=== PATIENT | female | born 1990 | race Caucasian/White ===

== ENCOUNTER 2019-01-14 18:05 | Inpatient (IN) ==
[2019-01-14 18:27] LABS: URINE SOURCE VOIDED
[2019-01-14] MEDS ORDERED: KEFZOL 1 GM/D5W 1 GM/50 ML IVPB IV PRN (18:28)
[2019-01-14] MEDS ORDERED: REGLAN PO ONE (18:28)
[2019-01-14] MEDS ORDERED: PEPCID PO ONE (18:28)
[2019-01-14] MEDS ORDERED: LR 1,000 ML IV SCH ×2 (18:30→22:30)
[2019-01-14] MEDS ORDERED: BICITRA PO ONE (18:31)
[2019-01-14 18:33] LABS: BILIRUBIN URINE NEGATIVE (NEGATIVE); BLOOD URINE TRACE (NEGATIVE); CLARITY CLEAR (CLEAR); COLOR YELLOW; GLUCOSE URINE NEGATIVE (NEGATIVE); KETONE URINE TRACE mg/dL (NEGATIVE); LEUKOCYTES URINE 1+ (NEGATIVE); NITRITE URINE NEGATIVE (NEGATIVE); PROTEIN URINE 1+(30 mg/dL) mg/dL (NEGATIVE); UROBILINOGEN URINE NORMAL
[2019-01-14] MEDS ORDERED: LR 1,000 ML ONE (18:48)
[2019-01-14 18:57] LABS: UR AMPHETAMINES QUAL NONE DETECTED (NONE DETECT); UR BARBITUATES QUAL NONE DETECTED (NONE DETECT); UR BENZODIAZEPIN QUAL NONE DETECTED (NONE DETECT); UR CANNABINOIDS QUAL NONE DETECTED (NONE DETECT); UR COCAINE QUAL NONE DETECTED (NONE DETECT); UR METHADONE QUAL NONE DETECTED (NONE DETECT); UR METHAMPHETAMINE QUAL NONE DETECTED (NONE DETECT); UR OPIATES QUAL NONE DETECTED (NONE DETECT); UR OXYCODONE QUAL NONE DETECTED (NONE DETECT); UR PCP QUAL NONE DETECTED (NONE DETECT); UR PROPOXYPHENE QUAL NONE DETECTED (NONE DETECT); UR TCA QUAL NONE DETECTED (NONE DETECT)
[2019-01-14 18:57] LABS: BASO# 0.02 X1000 (0.0-0.2); BASO% 0.2 % (0.0-0.8); EOS# 0.06 X1000 (0.0-0.7); EOS% 0.6 % (0.0-10.0); HEMATOCRIT 38.4 % (37.0-47.0); IMM GRAN# 0.06 X1000 (0.0-0.04); IMM GRAN% 0.6 % (0.0-0.5); LYMPH# 1.81 X1000 (1.2-3.4); LYMPH% 17.6 % (20.5-51.1); MCH 29.6 PG (27-31); MCHC 33.9 g/dL (33-37); MCV 87.5 FL (81-99); MONO# 0.93 X1000 (0.11-0.59); MPV 10.4 FL (7.4-10.4); NEUT# 7.43 X1000 (1.4-6.5); PLT 230 X1000 (130-400); RBC 4.39 XMIL (4.2-5.4); RDW 14.5 % (11.5-14.5); WBC 10.31 X1000 (4.8-10.8)
[2019-01-14] MEDS ORDERED: DIPRIVAN 1% ONE (19:11)
[2019-01-14] MEDS ORDERED: EPHEDRINE ONE ×2 (19:12→20:23)
[2019-01-14] MEDS ORDERED: FENTANYL ONE (19:13)
[2019-01-14] MEDS ORDERED: PITOCIN ONE (19:26)
[2019-01-14] MEDS ORDERED: SODIUM CHLORIDE 0.9% 10 ML ONE ×2 (19:28→20:24)
--- NOTE | 2019-01-14 19:40 | HISTORY AND PHYSICAL ---
HISTORY OF PRESENT ILLNESS: The patient is 28-year-old female, G2, P1, at 39 and 1/7 weeks. Presents with complaints of uterine contractions. Patient has a history of prior . She reports this course has been unremarkable. She is under care of a physician in [place] and was scheduled for in 2 days. The patient was noted to have uterine contractions and cervical dilatation upon presentation. The cervix dilated 3 cm, 80%, -2. We will proceed with operative delivery. PAST MEDICAL HISTORY: Unremarkable. PAST SURGICAL HISTORY: as well as dental surgery. PAST OB HISTORY: G2, P1, x1. [employer] HISTORY: Menarche at age 14. FAMILY HISTORY: Significant for diabetes mellitus as well as breast cancer. REVIEW OF SYSTEMS: All systems reviewed and noncontributory. SOCIAL HISTORY: Tobacco use none. Alcohol use none. MEDICATIONS: vitamins. ALLERGIES: No known drug allergies. PHYSICAL EXAMINATION: VITAL SIGNS: Height 5 feet 6, weight 240 pounds, temperature 97.3 degrees, blood pressure 134/61, pulse 91, respirations 22, heart rate in the 130s with positive accelerations. HEENT: Pupils equal, round, reactive to light, accommodation. Extraocular movements intact. Oropharynx clear. NECK: Supple. No thyromegaly. LUNGS: Clear to auscultation. HEART: Regular rate and rhythm. ABDOMEN: Gravid, nontender. Patient with uterine contraction pain noted. Cervix dilated 3 cm, 80% effaced, -2 station intact. EXTREMITIES: Mild lower extremity edema. 2+ DTRs bilaterally. ASSESSMENT/PLAN: 28-year-old, G2, P1, at 39 and 1/7 weeks who presents in active labor. We will proceed with operative delivery. Patient counseled about the risks of surgery including bleeding, infection, bowel or bladder injury. Perioperative antibiotics will be given at this time. We will try to obtain patient's records. cc: Usman Hough III, MD
[2019-01-14] MEDS ORDERED: ZOFRAN ONE (19:44)
[2019-01-14 20:14] LABS: RPR NON-REACTIVE (NONREACTIVE)
[2019-01-14] MEDS ORDERED: MORPHINE ONE ×2 (20:22→22:19)
[2019-01-14 20:45] LABS: RAPID HIV PRESUMPTIVE NEGATIVE
[2019-01-14] MEDS ORDERED: PHENERGAN IM PRN (20:52)
[2019-01-14] MEDS ORDERED: DEMEROL IM PRN (20:52)
[2019-01-14] MEDS ORDERED: PITOCIN 20 UNITS/NS 20 UNITS/1,000 ML IV.SOLN IV ONE (20:52)
[2019-01-14] MEDS ORDERED: AMBIEN PO PRN (20:52)
[2019-01-14] MEDS ORDERED: BOOSTRIX VACCINE IM ONE (20:52)
[2019-01-14] MEDS ORDERED: PITOCIN IM PRN (20:52)
[2019-01-14] MEDS ORDERED: DEMEROL PO PRN ×2 (20:52)
[2019-01-14] MEDS ORDERED: NORCO-5 PO PRN (20:52)
[2019-01-14] MEDS ORDERED: MYLICON PO PRN (20:52)
[2019-01-14] MEDS ORDERED: ATARAX PO PRN (20:52)
[2019-01-14] MEDS ORDERED: DULCOLAX PR PRN (20:52)
[2019-01-14] MEDS ORDERED: HYDROXYZINE IM PRN (20:52)
[2019-01-14] MEDS ORDERED: M-M-R II VACCINE SUBQ ONE (20:52)
[2019-01-14] MEDS ORDERED: PITOCIN 10 UNITS/NS 1,000 ML IV SCH (21:00)
[2019-01-14] MEDS: PERICOLACE PO SCH (21:53)
[2019-01-14] MEDS: TORADOL IV SCH (22:05)
[2019-01-14] MEDS ORDERED: ZOFRAN IV PRN (22:30)
[2019-01-14] MEDS ORDERED: BENADRYL IV PRN (22:30)
[2019-01-14] MEDS ORDERED: MORPHINE PCA IV PRN (22:30)
[2019-01-14] MEDS ORDERED: NARCAN IV PRN (22:30)
[2019-01-14] MEDS: MYLICON PO SCH (22:38)
[2019-01-14 22:54] LABS: RUBELLA SCREEN NON IMMUNE (IMMUNE)
--- NOTE | 2019-01-15 02:41 | OPERATIVE NOTE ---
PROCEDURE DATE: 01/14/2019 PREOPERATIVE DIAGNOSIS: Intrauterine (IUP) at 39 and 1/7 weeks with history of previous in active labor for repeat . POSTOPERATIVE DIAGNOSIS: Intrauterine (IUP) at 39 and 1/7 weeks with history of previous in active labor for repeat with operative delivery of a male , 7 pounds 15 ounces with Apgars of 7 and 9 at 19:48 on 01/14/2019. PROCEDURE: Repeat low-transverse . SURGEON: Usman Hough III, MD LENS GRINDER: ORT. ANESTHESIA: Spinal, Dr. Ho. FINDINGS: Normal-appearing uterus, tubes, and ovaries with noted pelvic adhesions involving omentum and bladder. COMPLICATIONS: None. ESTIMATED BLOOD LOSS: 500 mL. SPECIMENS REMOVED: None. DRAINS: Lopez to straight drain. COUNTS: All counts were correct x3. INDICATIONS: Patient is a 28-year-old female, G2, P1, at 39 and 1/7 weeks who is under the care of a physician in [place] who was in [facility] and then started having uterine contractions. Presented to labor and delivery and was noted to be in active labor. We will proceed with operative delivery. Patient counseled about the risks of surgery including bleeding, infection, bowel or bladder injury. DESCRIPTION OF PROCEDURE: The patient was taken to labor and delivery OR. Spinal anesthesia was employed. The patient was placed in dorsal lithotomy position and had a Lopez catheter placed. She was prepped and draped in a sterile fashion. Adequate anesthesia was noted by using Allis clamps on skin and then a Pfannenstiel skin incision made on lower abdomen using scalpel. This was taken down to the fascia layer. A small joel was made in the rectus fascia. Fascial incision was then extended bilaterally by curved Cid scissors. Then blunt and sharp dissection of the superior and inferior aspects of the rectus fascia was performed. Rectus muscles were then divided in the midline. Peritoneal layer was entered bluntly. The peritoneal incision was extended superiorly and inferiorly with care taken to avoid the bladder. The bladder reflection was created and a bladder blade was placed into the abdominal cavity. It was noted that there were tough adhesions on the bladder. A transverse incision was made on lower uterine segment. This was then extended bilaterally by the surgeon's fingers and clear fluid was noted upon entry. The head was then elevated toward the hysterotomy site and with gentle fundal pressure the head was delivered atraumatically and then bulb suctioned at the nose and mouth. The rest the body was delivered atraumatically with gentle fundal pressure. Umbilical cord was clamped twice and cut. Infant was handed to nursery nurse in attendance for delivery. Cord blood sample was obtained at this time. Placenta was then manually extracted. Uterus was exteriorized. Wet lap was placed around the uterus. Dry lap was then used to curette the uterine cavity of clots and debris. Uterine incision was then closed using 0 chromic in a running, locking fashion x1. A small area of oozing was noted on the left corner and made hemostatic with a figure-of- eight stitch and then also on the right corner an area of oozing was made hemostatic with a figure- of-eight stitch. The posterior cul-de-sac was then irrigated copiously. The uterus was replaced back into the abdominal cavity. Pericolic gutters were then cleansed using moist lap sponges. The uterine incision was inspected. A small area of oozing on the right corner had electrocautery placed on at. This was a small area of oozing and then Gelfoam was placed on this as well. The peritoneal layer was then closed with 2-0 chromic in a running fashion x1. The fascia layer was then closed using 0 PDS in a running fashion x1. Subcutaneous tissue was then irrigated and electrocautery was used to obtain hemostasis. The skin was then reapproximated using kunal. The patient tolerated procedure well and was taken recovery room in stable condition. All counts were correct x3. cc: Usman Hough III, MD
[2019-01-15] MEDS: TORADOL IV SCH ×3 (04:02→17:17)
[2019-01-15 06:55] LABS: BASO# 0.02 X1000 (0.0-0.2); BASO% 0.2 % (0.0-0.8); EOS# 0.04 X1000 (0.0-0.7); EOS% 0.3 % (0.0-10.0); HEMATOCRIT 33.3 % (37.0-47.0); HEMOGLOBIN 10.9 g/dL (12.0-16.0); IMM GRAN# 0.06 X1000 (0.0-0.04); IMM GRAN% 0.5 % (0.0-0.5); LYMPH% 15.2 % (20.5-51.1); MCH 29.2 PG (27-31); MCHC 32.7 g/dL (33-37); MCV 89.3 FL (81-99); MONO# 0.79 X1000 (0.11-0.59); MONO% 6.6 % (1.7-9.3); MPV 10.2 FL (7.4-10.4); NEUT# 9.17 X1000 (1.4-6.5); NEUT% 77.2 % (42.2-75.2); PLT 182 X1000 (130-400); RBC 3.73 XMIL (4.2-5.4); RDW 14.7 % (11.5-14.5); WBC 11.88 X1000 (4.8-10.8)
--- NOTE | 2019-01-15 07:36 | OB/GYN PROGRESS NOTE ---
Progress Note OB - . Patient Problems: Current Active Problems Problem Status Onset delivery delivered Acute Previous section Acute Intrauterine Acute OB Progress Note: Vital Signs - 24 hr 01/14/19 18:30 01/14/19 20:40 01/14/19 20:50 Temperature 97.3 F L 96.7 F L Pulse Rate 90 113 H 120 H Respiratory Rate 24 18 18 Blood Pressure 131/66 139/58 Blood Pressure [Left Arm] 139/58 134/61 O2 Sat by Pulse Oximetry 98 100 96 01/14/19 21:00 01/14/19 21:10 01/14/19 21:20 Temperature Pulse Rate 108 H 107 H 102 H Respiratory Rate 18 18 18 Blood Pressure Blood Pressure [Left Arm] 126/58 111/58 116/58 O2 Sat by Pulse Oximetry 99 99 100 01/14/19 21:30 01/14/19 21:40 01/14/19 22:30 Temperature 97.6 F Pulse Rate 100 H 108 H 114 H Respiratory Rate 18 18 18 Blood Pressure 117/65 Blood Pressure [Left Arm] 126/59 122/57 O2 Sat by Pulse Oximetry 100 99 98 01/14/19 22:45 01/14/19 23:00 01/14/19 23:30 Temperature Pulse Rate 111 H 118 H 114 H Respiratory Rate 18 18 18 Blood Pressure 113/61 112/56 118/64 Blood Pressure [Left Arm] O2 Sat by Pulse Oximetry 98 98 01/15/19 01:08 Temperature Pulse Rate 113 H Respiratory Rate 18 Blood Pressure 130/74 Blood Pressure [Left Arm] O2 Sat by Pulse Oximetry 97 Laboratory Results - last 24 hr 01/14/19 01/14/19 01/14/19 18:20 18:20 18:40 WBC RBC Hgb Hct MCV MCH MCHC RDW Std Deviation Plt Count MPV Immature Gran % (Auto) Neut % (Auto) Lymph % (Auto) [place] % (Auto) Eos % (Auto) Baso % (Auto) Immature Gran # (Auto) Neut # (Auto) Lymph # (Auto) [place] # (Auto) Eos # (Auto) Baso # (Auto) Glucose 72 Urine Source VOIDED Urine Color YELLOW Urine Clarity CLEAR Urine pH 7.0 Ur Specific [place] 1.010 Urine Protein 1+(30 mg/dL) A Urine Ketones TRACE Urine Blood TRACE Urine Nitrite NEGATIVE Urine Bilirubin NEGATIVE Urine Urobilinogen NORMAL Urine WBC 1+ A Urine Glucose NEGATIVE Urine Opiates Screen NONE DETECTED Ur Oxycodone Screen NONE DETECTED Urine Methadone Screen NONE DETECTED U Propoxyphene Qual NONE DETECTED Ur Barbituates Screen NONE DETECTED Ur Tricyclics Screen NONE DETECTED Ur Phencyclidine Scrn NONE DETECTED Ur Amphetamines Screen NONE DETECTED U Methamphetamines Scrn NONE DETECTED U Benzodiazepines Scrn NONE DETECTED Urine Cocaine Screen NONE DETECTED U Cannabinoids Screen NONE DETECTED RPR HIV 1&2 Antibody Rapid Rubella Immunity Screen Blood Type Antibody Screen 01/14/19 01/14/19 01/14/19 18:40 18:40 18:40 WBC 10.31 RBC 4.39 Hgb 13.0 Hct 38.4 MCV 87.5 MCH 29.6 MCHC 33.9 RDW Std Deviation 14.5 Plt Count 230 MPV 10.4 Immature Gran % (Auto) 0.6 H Neut % (Auto) 72.0 Lymph % (Auto) 17.6 L [place] % (Auto) 9.0 Eos % (Auto) 0.6 Baso % (Auto) 0.2 Immature Gran # (Auto) 0.06 H Neut # (Auto) 7.43 H Lymph # (Auto) 1.81 [place] # (Auto) 0.93 H Eos # (Auto) 0.06 Baso # (Auto) 0.02 Glucose Urine Source Urine Color Urine Clarity Urine pH Ur Specific [place] Urine Protein Urine Ketones Urine Blood Urine Nitrite Urine Bilirubin Urine Urobilinogen Urine WBC Urine Glucose Urine Opiates Screen Ur Oxycodone Screen Urine Methadone Screen U Propoxyphene Qual Ur Barbituates Screen Ur Tricyclics Screen Ur Phencyclidine Scrn Ur Amphetamines Screen U Methamphetamines Scrn U Benzodiazepines Scrn Urine Cocaine Screen U Cannabinoids Screen RPR NON-REACTIVE HIV 1&2 Antibody Rapid PRESUMPTIVE NEGATIVE Rubella Immunity Screen NON IMMUNE H Blood Type O POSITIVE Antibody Screen NEGATIVE 01/15/19 05:57 WBC 11.88 H RBC 3.73 L Hgb 10.9 L D Hct 33.3 L MCV 89.3 MCH 29.2 MCHC 32.7 L RDW Std Deviation 14.7 H Plt Count 182 MPV 10.2 Immature Gran % (Auto) 0.5 Neut % (Auto) 77.2 H Lymph % (Auto) 15.2 L [place] % (Auto) 6.6 Eos % (Auto) 0.3 Baso % (Auto) 0.2 Immature Gran # (Auto) 0.06 H Neut # (Auto) 9.17 H Lymph # (Auto) 1.80 [place] # (Auto) 0.79 H Eos # (Auto) 0.04 Baso # (Auto) 0.02 Glucose Urine Source Urine Color Urine Clarity Urine pH Ur Specific [place] Urine Protein Urine Ketones Urine Blood Urine Nitrite Urine Bilirubin Urine Urobilinogen Urine WBC Urine Glucose Urine Opiates Screen Ur Oxycodone Screen Urine Methadone Screen U Propoxyphene Qual Ur Barbituates Screen Ur Tricyclics Screen Ur Phencyclidine Scrn Ur Amphetamines Screen U Methamphetamines Scrn U Benzodiazepines Scrn Urine Cocaine Screen U Cannabinoids Screen RPR HIV 1&2 Antibody Rapid Rubella Immunity Screen Blood Type Antibody Screen HPI: Pt seen and examined. Currently reports abdominal pain improved s/p IV pitocin. Reports pain well controlled with [employer] pain meds. Tolerating regular diet, denies nausea/vomiting. Alejandro cath still in place. + bottle feeding. Denies fever/chills. VS: please see above GEN: NAD CV: RRR. +S1S2 RESP: CTA b/l ABD: soft, appropriately TTP, fundus firm below umbilicus INC: C/D/I EXT: neg CT, neg edema LABS: please see above ASSESSMENT: 28 yo POD#1 s/p repeat at 39 weeks 1 day secondary prior in labor PLAN: -D/C [employer] and start PO pain meds -D/c alejandro cath -OOB-->ambulation -con't Regular diet -Con't routine PP care
[2019-01-15] MEDS: MYLICON PO SCH ×2 (11:26→17:13)
[2019-01-15] MEDS: NORCO-10 PO PRN ×2 (11:34→17:24)
[2019-01-15 17:59] LABS: HIV ANTIBODY SCREEN SEE COMMENTS
[2019-01-15] MEDS ORDERED: LR 1,000 ML IV SCH (20:52)
[2019-01-16] MEDS: NORCO-10 PO PRN ×4 (01:35→22:16)
[2019-01-16] MEDS: MOTRIN PO PRN ×3 (01:35→22:16)
[2019-01-16] MEDS: MYLICON PO SCH ×5 (08:32→22:16)
[2019-01-16 09:11] LABS: HEPATITIS B SURFACE ANTIGEN SEE COMMENTS
[2019-01-16] MEDS: PERICOLACE PO SCH ×2 (22:16→22:19)
[2019-01-17] MEDS: MOTRIN PO PRN ×2 (09:40→17:39)
[2019-01-17] MEDS: MYLICON PO SCH ×3 (09:40→17:39)
--- NOTE | 2019-01-17 11:07 | OB/GYN PROGRESS NOTE ---
Progress Note OB - . Patient Problems: Current Active Problems Problem Status Onset delivery delivered Acute Previous section Acute Intrauterine Acute OB Progress Note: Vital Signs - 24 hr 01/16/19 12:10 01/16/19 16:05 01/16/19 17:15 Temperature 97.4 F L 97.1 F L Pulse Rate 98 H 120 H Respiratory Rate 18 16 Blood Pressure 128/82 162/82 145/73 O2 Sat by Pulse Oximetry 96 98 01/16/19 20:00 01/17/19 00:50 01/17/19 08:05 Temperature 97.1 F L 97.2 F L Pulse Rate 126 H 110 H Respiratory Rate 18 18 Blood Pressure 142/73 123/58 O2 Sat by Pulse Oximetry 98 01/17/19 08:28 Temperature 97.3 F L Pulse Rate 91 H Respiratory Rate 16 Blood Pressure 124/74 O2 Sat by Pulse Oximetry 98 Laboratory Results - last 24 hr 01/14/19 18:20 Ur Chlamydia/GC DNA SEE COMMENTS Obese 28 yo WSF followed by Dawn Silva in [place] and now POD 2-1/2 RLTCS after preseniting in active labor Tuesday evening. She has experienced a normal postoperative course. The 's meconium testing is in progress and discharge is anticipated tomorrow when these results are back. VS: please see above GEN: NAD CV: RRR. RESP: Nl respiratory effort ABD: soft,fundus firm below umbilicus INC: C/D/I EXT: neg CT, neg edema LABS: see above records from include a 15 week dating sono, Rh+, Immune, RPR, HepBsAg, Ct GC HIV 1-hr OGT and Pap all negative. Record notable for missed visits. ASSESSMENT: 28 yo POD#2-1/2 s/p repeat at 39 weeks 1 day secondary prior in labor with methamphetamine screen positive Circumcision completed after informed consent obtained from mother [facility] Safety Plan on the chart and FOB plans to undergo drug testing today Plan discharge of mother tomorrow if stable
--- NOTE | 2019-01-17 15:29 | OB/GYN PROGRESS NOTE ---
Progress Note OB - . Patient Problems: Current Active Problems Problem Status Onset delivery delivered Acute Previous section Acute Intrauterine Acute OB Progress Note: Vital Signs - 24 hr 01/16/19 16:05 01/16/19 17:15 01/16/19 20:00 Temperature 97.1 F L 97.1 F L Pulse Rate 120 H 126 H Respiratory Rate 16 18 Blood Pressure 162/82 145/73 142/73 O2 Sat by Pulse Oximetry 98 01/17/19 00:50 01/17/19 08:05 01/17/19 08:28 Temperature 97.2 F L 97.3 F L Pulse Rate 110 H 91 H Respiratory Rate 18 16 Blood Pressure 123/58 124/74 O2 Sat by Pulse Oximetry 98 98 01/17/19 13:29 Temperature 97.1 F L Pulse Rate 87 Respiratory Rate 16 Blood Pressure 119/62 O2 Sat by Pulse Oximetry 97 The may be discharged tonight according to the [facility] saftey plan. The patient believes the safety plan will be revised if the drug testing of the FOB returns clear, and his results may be in this afternoon. I reviewed full discharge precautions, postoperative limitations, medications, a nd return to her physician in 2 and 6 weeks and will print discharge medication should she opt for discharge this evening.
[2019-01-17 17:58] VITALS: BP 130/75
== END 2019-01-17 19:12 | disposition home or self-care (01) | DRG 788 ==
LOC: P.OPLD 18:05 → P.LD 18:13
PROVIDERS: ADMIT Obstetrics & Gynecology; ATTEND Obstetrics & Gynecology
CPT/HCPCS: 59025; 80104; 80301; 80305; 81003; 82947; 85025; 86592; 86701; 86703; 86762; 86850; 86900; 86901; 87340; 87389; 87390; 87491; 87591; 94760; 94761; A9270; G0431; G0434; G0477; J0690; J1885; J2270; J2275; J2405; J2590; J3010; J7120; Q9974